=== PATIENT | male | born 1940 | race Caucasian/White ===

== ENCOUNTER 2023-12-13 13:45 | Outpatient (RCR) | payer OTHER, SELFPAY | END 2024-02-08 09:31 | disposition home or self-care (01) | PROVIDERS: PCP Family Medicine; Visit Provider Family Medicine | DX: S46.012A Strain of muscle(s) and tendon(s) of the rotator cuff of left shoulder, initial encounter (principal); S49.92XA Unspecified injury of left shoulder and upper arm, initial encounter; M25.512 Pain in left shoulder; M25.612 Stiffness of left shoulder, not elsewhere classified; M25.611 Stiffness of right shoulder, not elsewhere classified; Z51.89 Encounter for other specified aftercare | CPT/HCPCS: 97110; 97112; 97116; 97140; 97162 ==

== ENCOUNTER 2024-01-31 10:07 | Outpatient (CLI) | payer OTHER, SELFPAY | END 2024-01-31 10:08 | disposition home or self-care (01) | LOC: CT 10:10 | PROVIDERS: PCP Family Medicine; Visit Provider Orthopaedic Surgery Sports Medicine | DX: Z01.818 Encounter for other preprocedural examination (principal) | CPT/HCPCS: 73200 ==

== ENCOUNTER 2024-02-15 09:14 | Day surgery (SDC) | payer OTHER, SELFPAY ==
[2024-02-15] VITALS (25 sets, daily range): BP systolic 99–160; BP diastolic 53–81; PULSE 55–82; RESP 12–20; TEMP 35.7–36.3; O2SAT 89–100; BMI 25.2
--- NOTE | 2024-02-15 10:26 | W.PM.H&PU ---
History & Physical Update History & Physical Update H&P Reviewed and patient assessed: No changes noted
--- NOTE | 2024-02-15 10:28 | XR_ITS ---
Patient: MAREN ARRIAZA Facility:?[facility] Patient ID:?[id number] Site Patient ID:?[id number]. Site :?[id number] Study:?XRay-Shoulder Left 2 VIEW POSTOP-02/15/2024 4:48:03 PM Ordering Physician:ALEX Final Report: Indication: Postop Technique: Two views left shoulder Findings/Impression: Hardware from a left total shoulder arthroplasty is in satisfactory position. Bone alignment is normal. No sign of acute fracture. Postop changes are within normal limits. Dictated by Luis A Domingo MD @ 02/16/2024 8:26:39 AM Signed by:?Luis A Domingo MD @02/16/2024 8:26:39 AM (Electronic Signature)
[2024-02-15] MEDS: LACTATED RINGERS 1000 ML 1,000 ML 100 ML IV ×2 (10:30→12:54)
[2024-02-15] MEDS: SODIUM CHLORIDE 0.9 % (FLUSH) 10 ML SYRINGE IVF (10:31)
[2024-02-15] MEDS: OXYCODONE (CR) 10 MG TAB.ER.12H PO (10:43)
[2024-02-15] MEDS: MIDAZOLAM HCL 1 MG/ML inj IVP (11:14)
[2024-02-15] MEDS: fentaNYL 100 MCG/2 ML inj IVP (11:14)
--- NOTE | 2024-02-15 11:19 | SUR.PREOP ---
TIME?OUT:?1113 PT/RN/MDA?VERIFICATION?OF?SURGICAL?SITE,?PROCEDURE,?AND?CONSENT OBTAINED?PRIOR?TO?INVASIVE?PROCEDURE.
--- NOTE | 2024-02-15 11:41 | SUR.OPER ---
PATIENT QUESTIONS ANSWERED SATISFACTORILY PREOPERATIVELY. PATIENT BROUGHT TO OR #3 PER CART FOLLOWING THE BLOCK. Patient positioned supine on OR #3 bed for the intubation.? Perioperative team wrapped the right arm in a neutral position on the pt. abdomen with the drawsheet. Left arm elevated on an IV pole in a padded strap. Final approval of positioning by surgeon.
[2024-02-15] MEDS: TRANEXAMIC ACID 100 MG/ML INJ 1000 MG IV (12:38)
[2024-02-15] MEDS: CEFAZOLIN 2 GM in 0.9 % SODIUM CHLORIDE Mini-bag 100 ML IVPB (12:40)
--- NOTE | 2024-02-15 12:43 | W.PM.NB ---
Nerve Block Nerve Block Time Seen by Provider: 11:10 Date Seen: 02/15/24 Type of block requested by surgeon for post-operative analgesia: supraclavicular Side: left Time out performed: Yes Verification of patient name: Yes Verification of date of : Yes Site marking: site marked Name of person performing procedure: Bull Continuous monitoring Was continuous monitoring of O2 sat, B/P, groundwater monitoring technician, recorded every 15 minutes?: Yes Procedure Checklist: sterile prep, needles and gloves Ultrasound guided. Images saved: Yes Medications given in 5ml increments after negative aspiration: Ropivicaine %: 0.5 mL: 20 Needle gauge: 22 Decadron (mg): 10 Precedex (mcg): 25 Patient tolerated procedure well: Yes Block Charges Block Charge (with Pro Fee): Brachial Plexus Use of Ultrasound Machine for Block: Yes- US Guidance/pain block
--- NOTE | 2024-02-15 12:44 | W.ANESCHARGE ---
Anesthesia Charges Start Date/Time Anesthesia Start Date: 02/15/24 Anesthesia Start Time: 12:18 Stop Date/Time Anesthesia Stop Date: 02/15/24 Anesthesia Stop Time: 14:21 Summary Extremes of Age - Over 70 or under 1: MDA
--- NOTE | 2024-02-15 14:04 | PM.ORPRC ---
Procedure Note Date of procedure: 02/15/24 Procedure: PREOPERATIVE DIAGNOSIS: 1. Left shoulder irrepairable rotator cuff tear 2. Left long head of the biceps tendinopathy and tenosynovitis POSTOPERATIVE DIAGNOSIS: 1. Left shoulder irrepairable rotator cuff tear 2. Left long head of the biceps tendinopathy and tenosynovitis PROCEDURE: 1. Left reverse shoulder arthroplasty. 2. Left long head of biceps open tenodesis SURGEON: Rylan Kowalski MD. MEDICAL SCIENTIFIC LIAISON: Krishna RIVERA - Of note, a skilled administrative assistant receptionist was critical for this case to aid in patient positioning, tissue retraction, limb manipulation/positioning, retraction for glenoid exposure, which was challenging, awareness and protection of critical structures, and closure. ANESTHESIA: General plus supraclavicular block EBL: 100 ml IMPLANTS: DJ0 surgical Altivate humeral stem size 10 standard shell, short with P2 porous coating vitamin E neutral poly small socket insert RSP glenoid base plate P2 porous coating with 4 perimeter locking screws 32 neutral glenosphere with retaining screw COMPLICATIONS: None evident INDICATIONS: The patient is a pleasant 83-year-old male who sustained left shoulder rotator cuff tear that was found to be significantly torn, retracted, and atrophied. It was not felt to be repairable. Given his dysfunction, associated pain with daily life, and failure of nonoperative management, surgery was indicated. DESCRIPTION OF PROCEDURE: Following a thorough discussion of risks, benefits, and alternatives, consent was obtained and the left shoulder was marked. The patient was brought to the operating room and placed supine on the operating table. Induction of anesthesia was undertaken. 1 g IV Ancef and 1 g tranexamic acid was administered within 1 hr of incision preoperatively. Appropriate time-out was performed identifying proper patient, site, and procedure. The operative extremity was prepped and draped in the appropriate sterile fashion using ChloraPrep after the patient was positioned in the lazy beach chair position with head in neutral alignment and all bony prominences well padded. A longitudinal incision was made for deltopectoral approach. Deltoid was retracted laterally. Cephalic vein was identified and retracted laterally as well. Vein was spared/protected throughout the case. The clavipectoral fascia was identified and divided longitudinally staying lateral to the conjoined tendon / coracoid. The conjoined tendon was protected with a blunt Hohmann. The long head of the biceps tendon was identified and the bicipital sheath released. The upper 1/4 of the pectoralis major was also released from its insertion. The long head of the biceps was tenodesed to the pectoralis major tendon. The remaining proximal tendon tissue was excised. The rotator cuff was inspected and found to have good integrity with the subscapularis but fair integrity with a supraspinatus], and a decision for a reverse shoulder arthroplasty was confirmed. The long head of biceps, of note, was significant flattened, thickened, with abundant tenosynovitis. A subscapularis cuff of tissue was left via tenotomy for later repair with the remaining subscapularis released in a subperiosteal fashion with the Bovie. This was tagged for later repair. The 3 sisters were cauterized. The upper subscapularis was released from the capsule with a curved Larson scissors towards the glenoid. The inferior subscapularis was divided from the capsular tissue on its caudal surface with particular caution for the axillary nerve. This was palpated anterior to the subscapularis both prior to and near the finish of the case. Inferior humeral head osteophytes were excised with caution taken throughout the case with regards to the axillary nerve. The humerus was dislocated, and humeral head cut completed. Then a protector plate was applied. We turned our attention to the glenoid. The humerus was retracted posteriorly. The subscap was protected anteriorly and the labrum/long head biceps origin was excised circumferentially. The capsule was released along the anterior and inferior portions of the glenoid cautiously with a Chicas elevator being careful not to penetrate deep. The glenoid had appropriate exposure, and was prepared with the cannulated system with a target of approximately 5-10? of inferior tilt and neutral anteversion (patient had 7 ? of retroversion initially). [Utilizing the match Point 3D printed guide, the guide pin was placed. The 3D printed jig removed and after placing the guide pin, the tap was placed followed by the glenoid reaming. The real base plate was opened, and inserted, and excellent compression/purchase was achieved with the central screw. Peripheral screws were then drilled, measured, and placed. The glenosphere was then placed consistent with the preoperative plan utilizing the above noted glenosphere. After securing the glenosphere with the locking, torque limited screw, attention was turned back to the humerus. A canal finder was placed followed by various reamers by hand. The real humeral stem was then opened and inserted with excellent metaphyseal fit and stability. Trial poly was placed and the shoulder reduced. Excellent reduction and stability achieved with appropriate tension on the conjoined tendon. At this stage, trial implants were removed, and the real implants inserted and the shoulder reduced. A 3 minute Betadine soak was performed followed by a thorough irrigation with normal saline. Subscapularis was repaired with #1 PDS to the cuff of tissue on the lesser tuberosity. Excellent reapproximation of tissue achieved. Hemostasis was found to be appropriate. The deltopectoral interval was reapproximated with 0 Vicryl, subcutaneous and subcuticular closure was then performed with number 2-0 Vicryl and 4-0 Monocryl, respectively. A skilled administrative assistant receptionist was critical for this case to aid in patient positioning, tissue retraction, limb manipulation/positioning, retraction for glenoid exposure, which was challenging, awareness and protection of critical structures, and closure. PLAN: 1. Sling at all times for the operative upper extremity. 2. AROM of elbow, forearm, wrist, and digits as tolerated. 3. PT/OT consults for education and assistance. 4. Social consult for discharge planning. 5. 23 hr perioperative antibiotics. 6. Early ambulation, and SCDs for DVT prophylaxis. 7. Admit to the hospital for the above 8. Analgesics p.r.n.
--- NOTE | 2024-02-15 14:22 | PM.IMPN1 ---
Progress Note: A&P Assessment and plan (1) Status post reverse total shoulder replacement: Problem details: 02/15/24. Dr. Kowalski [facility] medicine team is happy to follow patient through to discharge. I will add telemetry and glucose checks to his overnight cares. 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 hx of AMI. 2 stents, RCA. [place]. normal stress echo in April 2007 does not follow with cardiology Status: Acute (6) Essential hypertension, benign: Problem details: lisinopril, metoprolol XL - lisinopril on hold. Metoprolol will be continued as long as his map is greater than 65. Status: Acute (7) Sensorineural hearing loss, bilateral: Status: Acute Subjective Date Seen: 02/15/24 Interval history: HOSPITALIST CONSULT PROCEDURE: 1. Left reverse shoulder arthroplasty. 2. Left long head of biceps open tenodesis SURGEON: Rylan Kowalski MD. ANESTHESIA: General plus supraclavicular block EBL: 100 ml COMPLICATIONS: None evident The hospital medicine team was asked by the orthopedic surgery team to manage the patient's diabetes, known coronary heart disease, hypertension. There have been no perioperative complications. Updated and reviewed the active medical problems, past medical history, past surgical history, social history, allergies and medications in our electronic EMR. PHYSICAL EXAM: CODE STATUS: FULL CODE CONSTITUTIONAL: Conversive, good historian. A/O. Knows setting and context. VITAL SIGNS: see record. HEENT: Normocephalic, atraumatic. PERRL, EOMI, conjunctivae pink, no scleral icterus. Ears and nose externally normal. Pharynx normal. NECK: No JVD. No carotid bruit, no thyromegaly, no adenopathy. CHEST: Clear to auscultation bilaterally HEART: S1 and S2 normal. ABDOMEN: Flat, soft, nontender. Normal bowel sounds. Moderately obese. EXTREMITIES: No edema. MUSCULOSKELETAL: Left shoulder: surgical dressing in place. NEURO: Cranial nerves intact. Mentation normal. Normal affect. SKIN: No rashes, petechiae, concerning changes PSYCHIATRIC: Mentation normal. INVESTIGATIONS: EMR Reviewed; Pre-OP Reviewed DISPOSITION: DVT: N/A GI: PO intake Exam Const: Vital Signs, click to edit/add: Vital Signs - 24 hr 02/15/24 10:14 02/15/24 11:15 02/15/24 11:30 Temperature 97.0 F L Pulse Rate 60 57 L 55 L Respiratory Rate 16 16 16 Blood Pressure 160/81 H 114/59 L 100/55 L Pulse Oximetry 99 98 99 Oxygen Delivery Me thod Room Air Nasal Cannula Nasal Cannula Oxygen Flow Rate 2 2 02/15/24 11:45 Temperature Pulse Rate 56 L Respiratory Rate 16 Blood Pressure 99/57 L Pulse Oximetry 100 Oxygen Delivery Me thod Nasal Cannula Oxygen Flow Rate 2
--- NOTE | 2024-02-15 14:24 | W.ANESCHARGE ---
Anesthesia Charges Start Date/Time Anesthesia Start Date: 02/15/24 Anesthesia Start Time: 12:18 Stop Date/Time Anesthesia Stop Date: 02/15/24 Anesthesia Stop Time: 14:21 Summary Extremes of Age - Over 70 or under 1: AUTOMOTIVE QUALITY MANAGER
--- NOTE | 2024-02-15 18:51 | PC.NURSE ---
Discharge: Patient pleasant and cooperative, A&O. VSS, SpO2 maintained over 88% on 0.5L O2. Lung sounds clear to auscultation. Blood glucose 196, informed of insulin order, refused for now, patient takes metformin at baseline. Denies pain. Able to wiggle fingers, has good capillary refill, tolerating regular diet. Dressing clean dry and intact. Left arm in sling.
[2024-02-15] MEDS: LACTATED RINGERS 1000 ML 1,000 ML 75 ML IV (20:36)
[2024-02-15] MEDS: CEFAZOLIN 1 GM in 0.9 % SODIUM CHLORIDE Mini-bag 100 ML IVPB (20:38)
[2024-02-15] MEDS: METFORMIN ER 500 MG 1000 MG PO (20:42)
[2024-02-15] MEDS: SIMVASTATIN 40 MG TABLET PO (20:42)
[2024-02-15] MEDS: SENNOSIDES 1 TAB TABLET 2 TAB PO (20:42)
[2024-02-15] MEDS: ACETAMINOPHEN 500 MG TABLET 1000 MG PO (20:42)
[2024-02-15] MEDS: INSULIN ASPART 100 UNIT/ML SUBCUT (20:45)
[2024-02-16 03:00] VITALS: BP 114/63; PULSE 75; RESP 16; TEMP 35.8; O2SAT 77
[2024-02-16] MEDS: CEFAZOLIN 1 GM in 0.9 % SODIUM CHLORIDE Mini-bag 100 ML IVPB (03:52)
[2024-02-16] MEDS: ACETAMINOPHEN 500 MG TABLET 1000 MG PO ×2 (03:56→10:00)
[2024-02-16 06:41] LABS: Hematocrit 34.4 % (37.0-53.0); Hemoglobin* 11.2 gm/dL (13.5-17.5); Mean Corpuscular HGB Conc 33 gm/dL (32-36); Mean Corpuscular Hemoglobin 32 pg (26-34); Mean Corpuscular Volume 97 fL (80-100); Platelet Count* 199 K/uL (140-440); Red Blood Count 3.55 m/uL (4.30-5.90); White Blood Count* 16.15 K/uL (4.50-11.00)
--- NOTE | 2024-02-16 06:42 | PC.NURSE ---
Patient pleasant, alert and oriented. Ambulated to bathroom with assist of one. Saline locked at 2114. Patient declined to take scheduled SS insulin at suppertime. Blood sugar 289 at HS. Patient agreed to take scheduled HS sliding scale insulin at that time. Dressing to left shoulder clean, dry and intact.?Active-ice applied. Given scheduled Tylenol. Denied pain during the night.?
[2024-02-16 06:45] LABS: Slide Review Reflex No
[2024-02-16 07:00] VITALS: BP 123/64; PULSE 78; PULSE 93; RESP 18; TEMP 36.4; O2SAT 93
[2024-02-16 07:06] LABS: Potassium* 4.7 mmol/L (3.6-5.1); Sodium* 136 mmol/L (135-149)
[2024-02-16 07:09] LABS: Creatinine* 0.8 mg/dL (0.5-1.5); Est. Creatinine Clearance* 50.51; Estimated Glomerular Filt Rate 88 ml/min
[2024-02-16 07:10] LABS: Blood Urea Nitrogen* 32 mg/dL (7-30)
[2024-02-16 08:17] VITALS: PULSE 82
--- NOTE | 2024-02-16 09:13 | PM.ORPN ---
Subjective Subjective Date Seen: 02/16/24 Principal diagnosis: Status postop day 1 left reverse TSA and long head biceps tenodesis Interval history: Patient reports doing well. No acute events over night. Pain managed with scheduled and PRN medications, ice. DVT prophylaxis: SCDs and walking. Denies fevers, chills, aches, N/V, CP, SOB/AUGUSTINE, or lightheadedness. Ortho Exam Narrative Exam Narrative: -Patient appears comfortable in recliner; no apparent acute distress -Alert and oriented times 3 -Operative shoulder swollen; soft, supple tissues; no obvious erythema. No ecchymosis. Warmth appropriate -Surgical dressing clean, dry, intact; no obvious drainage, no erythematous streaking peripheral to the bandage -Bilateral calves soft and supple; no significant swelling, edema, tenderness, erythema, discoloration, warmth, or palpable cords -2+ radial pulse, intact dermatomes and myotomes distally (5/5 strength) Const Vital Signs, click to edit/add: Vital Signs - 24 hr 02/15/24 10:14 02/15/24 11:15 02/15/24 11:30 Temperature 97.0 F L Pulse Rate 60 57 L 55 L Pulse Rate [Left Pulse Oximeter] Respiratory Rate 16 16 16 Blood Pressure 160/81 H 114/59 L 100/55 L Blood Pressure [Right Arm] Pulse Oximetry 99 98 99 Oxygen Delivery Method Room Air Nasal Cannula Nasal Cannula Oxygen Flow Rate 2 2 02/15/24 11:45 02/15/24 14:16 02/15/24 14:20 Temperature 96.8 F L Pulse Rate 56 L 70 71 Pulse Rate [Left Pulse Oximeter] Respiratory Rate 16 17 16 Blood Pressure 99/57 L 134/62 128/53 L Blood Pressure [Right Arm] Pulse Oximetry 100 95 92 Oxygen Delivery Method Nasal Cannula Room Air Oxygen Flow Rate 2 02/15/24 14:25 02/15/24 14:30 02/15/24 14:35 Temperature Pulse Rate 68 70 71 Pulse Rate [Left Pulse Oximeter] Respiratory Rate 14 12 12 Blood Pressure 126/70 126/66 130/77 Blood Pressure [Right Arm] Pulse Oximetry 90 91 93 Oxygen Delivery Method Oxygen Flow Rate 02/15/24 14:40 02/15/24 14:45 02/15/24 14:55 Temperature 96.8 F L 96.3 F L Pulse Rate 67 66 67 Pulse Rate [Left Pulse Oximeter] Respiratory Rate 14 12 12 Blood Pressure 123/67 128/70 106/65 Blood Pressure [Right Arm] Pulse Oximetry 91 92 90 Oxygen Delivery Method Room Air Oxygen Flow Rate 02/15/24 15:15 02/15/24 15:30 02/15/24 15:45 Temperature 96.4 F L 96.4 F L Pulse Rate 68 64 64 Pulse Rate [Left Pulse Oximeter] Respiratory Rate 14 14 Blood Pressure 118/65 117/70 119/67 Blood Pressure [Right Arm] Pulse Oximetry 90 89 Oxygen Delivery Method Room Air Room Air Room Air Oxygen Flow Rate 02/15/24 16:00 02/15/24 16:30 02/15/24 16:40 Temperature 96.4 F L 96.3 F L Pulse Rate 66 68 67 Pulse Rate [Left Pulse Oximeter] Respiratory Rate 16 12 Blood Pressure 126/67 135/69 106/65 Blood Pressure [Right Arm] Pulse Oximetry 95 90 Oxygen Delivery Method Nasal Cannula Room Air Oxygen Flow Rate 0.5 02/15/24 16:42 02/15/24 17:00 02/15/24 18:00 Temperature 97.0 F L 97.3 F L Pulse Rate 64 67 78 Pulse Rate [Left Pulse Oximeter] Respiratory Rate 16 16 Blood Pressure 132/62 115/67 Blood Pressure [Right Arm] Pulse Oximetry 94 94 Oxygen Delivery Method Nasal Cannula Nasal Cannula Oxygen Flow Rate 0.5 0.5 02/15/24 19:30 02/15/24 20:15 02/15/24 21:15 Temperature 97.3 F L 97.1 F L 97.3 F L Pulse Rate 74 77 82 Pulse Rate [Left Pulse Oximeter] Respiratory Rate 16 20 19 Blood Pressure 113/56 L 125/64 115/69 Blood Pressure [Right Arm] Pulse Oximetry 93 90 93 Oxygen Delivery Method Room Air Room Air Room Air Oxygen Flow Rate 02/15/24 23:00 02/15/24 23:00 02/16/24 03:00 Temperature 97.3 F L 96.4 F L Pulse Rate 73 Pulse Rate [Left Pulse Oximeter] 76 75 Respiratory Rate 18 16 Blood Pressure Blood Pressure [Right Arm] 114/64 114/63 Pulse Oximetry 94 77 L Oxygen Delivery Method Room Air Room Air Oxygen Flow Rate 02/16/24 07:00 Temperature 97.6 F Pulse Rate Pulse Rate [Left Pulse Oximeter] 93 Respiratory Rate 18 Blood Pressure Blood Pressure [Right Arm] 123/64 Pulse Oximetry 93 Oxygen Delivery Method Room Air Oxygen Flow Rate Assessment and Plan Assessment and plan (1) Status post reverse total shoulder replacement: Problem details: 02/15/24. Dr. Kowalski [facility] [address] medicine team is happy to follow patient through to discharge. I will add telemetry and glucose checks to his overnight cares. 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 hx of AMI. 2 stents, RCA. [place]. normal stress echo in April 2007 does not follow with cardiology Status: Acute (6) Essential hypertension, benign: Problem details: lisinopril, metoprolol XL - lisinopril on hold. Metoprolol will be continued as long as his map is greater than 65. Status: Acute (7) Sensorineural hearing loss, bilateral: Status: Acute Plan - Complete 23 hour perioperative antibiotics. - PT/OT consult for education and assistance. - Social work consult for discharge planning - Prescribed analgesics as needed - DVT prophylaxis: SCDs and walking - Anticipation is for discharge to home with spouse today, 02/16/2024 if the patient remains medically stable, pain is controlled, and they are safe with mobilization.
[2024-02-16] MEDS: EMPAGLIFLOZIN 10 MG TABLET PO (10:00)
[2024-02-16] MEDS: SENNOSIDES 1 TAB TABLET 2 TAB PO (10:00)
[2024-02-16] MEDS: METOPROLOL SUCCINATE (XL) 100 MG TAB PO (10:01)
[2024-02-16] MEDS: METFORMIN ER 500 MG 1000 MG PO (10:17)
--- NOTE | 2024-02-16 13:54 | PC.NURSE ---
Discharge: Patient pleasant and cooperative, A&O. SpO2 maintained over 90% on RA. Left lung sounds were diminished. Crackles auscultated on right lung base, MD notified. Dressing on left shoulder clean, dry and intact. Patient reported no pain. Left arm in sling with ice pack. Discharge instructions given to patient and spouse, all questions answered.
== END 2024-02-16 11:25 | disposition home or self-care (01) ==
LOC: OR 09:15 → MEDSURG 09:18
PROVIDERS: PCP Family Medicine; Visit Provider Orthopaedic Surgery Sports Medicine
PROC: 0RRJ0JZ Replacement of Right Shoulder Joint with Synthetic Substitute, Open Approach (ICD-10-PCS; CPT 23472; principal; 2024-02-15 11:00)
DX: M75.122 Complete rotator cuff tear or rupture of left shoulder, not specified as traumatic (principal); M75.22 Bicipital tendinitis, left shoulder; G89.18 Other acute postprocedural pain; G47.33 Obstructive sleep apnea (adult) (pediatric); Z99.89 Dependence on other enabling machines and devices; I12.9 Hypertensive chronic kidney disease with stage 1 through stage 4 chronic kidney disease, or unspecified chronic kidney disease; E11.22 Type 2 diabetes mellitus with diabetic chronic kidney disease; N18.1 Chronic kidney disease, stage 1; Z79.84 Long term (current) use of oral hypoglycemic drugs; I25.10 Atherosclerotic heart disease of native coronary artery without angina pectoris; Z87.891 Personal history of nicotine dependence; H90.3 Sensorineural hearing loss, bilateral
CPT/HCPCS: 23472; 23430; 01638; 36415; 64415; 73030; 76942; 82565; 82962; 84132; 84295; 84520; 85027; 97116; 97161; 97165; 99100; A9270; C1713; C1776; J0330; J0690; J1100; J2250; J2371; J2405; J2704; J2795; J3010; J3490; J7120; L3670

== ENCOUNTER 2024-07-11 10:30 | Outpatient (RCR) | payer OTHER, SELFPAY ==
--- NOTE | 2024-02-09 16:44 | OT.OPOE ---
OT Outpatient Ortho Eval OT Outpatient Ortho Eval* Start: 02/09/24 14:53 Freq: Status: Active Protocol: Document 02/09/24 16:27 SMW (Rec: 02/09/24 16:43 SMW [id number]) E-signed By Kiley Khan OT OT OP Ortho Eval Details Complexity Complexity Low Insurance Information Insurance Information [facility] Outpatient History/Precautions Current Condition/Medical Diagnosis Referring Provider Dr. Kowalski Treatment Diagnosis Left TSA Date of Onset surgery scheduled for 02/15/24 Precautions Lifting Restrictions,Range of Motion Medical Conditions DM,Heart Condition Medical/Functional History Medical History Reviewed Yes Prior Level of Function/Mobility Patient lives with spouse and is independent in ADLs, IADLs and occasional use of a 4WW. Reports significant falls recently. Ortho Subjective Subjective Subjective A fall in August caused me to replace my left shoulder. Pain Assessment Pain Present Pain Present Pain Reported Assessment Assessment Assessment The patient is a 83 year old male referred to outpatient OT for a pre-op for a LTSA which will occur on 02/15/24. The patient lives with spouse in own home. He is independent in ADLs and mobility. His daughter recently purchased a 4WW due to several falls. He reports only using it ~ 1x per week. A fall in August is what caused him to need a total shoulder replacement. The patient was educated on sling management, postioning, post op exercises and icing. This information will need to be reinforced prior to discharge from the hospital. Occupational Therapy Treatment Plan - OP Treatment Plan Treatment Plan Evaluation Recertification Information Recertification Information Initial Certification Date 02/09/24 Recertification Start Date 02/09/24 Provider Signature Shows Agreement With POC & Medical Necessity Physician Comment/Change Comment or Changes Physician NPI Number #
--- NOTE | 2024-02-29 17:24 | PT.OPEX ---
PT [place] Outpatient Eval PT [facility] Outpatient Eval Start: 02/29/24 10:10 Freq: Status: Active Protocol: Document 02/29/24 10:10 LINDSEY (Rec: 02/29/24 17:24 LINDSEY [id number]) E-signed By Joann Mitchell PT Physical Therapy Outpatient Evaluation Insurance Information Recert Due Date 02/29/24 Insurance Name Medicare B Medical Diagnosis LEFT OA LEFT RTC TEAR S/P rTSA 02/15/24 Treating Diagnosis SHOULDER PAIN SHOULDER WEAKNESS Referring MD ELIZABETH FISH Subjective Subjective PATIENT ARRIVES W/O SLING TODAY STATING, OH, I DIDN'T KNOW I NEEDED TO WEAR IT EXCEPT TO SLEEP. LOOK, I CAN MOVE IT PRETTY GOOD BUT NOT GOOD WHEN I REACH BEHIND MY BACK. HE HAS A LONG H/O SHOULDER DYSFUNCTION WITH FORMAL PHYSICAL THERAPY RECENTLY W/O IMPROVEMENT. HE REPORTS USING ICE AND PO MEDS FOR PAIN MGMT BUT DENIES MUCH PAIN AND RARELY USES THEM AT THIS POINT . HE REPORTS DIFFICULTY LYING FLAT W/O ROLLING OVER TO HIS RIGHT SIDE WHERE HE USUALLY SLEEPS. SEE BELOW FOR PATIENT EDUCATION. Pain Comments 12/03 Date of Last Physician Visit 02/23/24 Date of Next Physician Visit 03/30/24 Date of Surgery (If applicable) 02/15/24 Current Work Status Retired Occupation RETIRED REALTOR Preferred Name LISETH Precautions Treatment Precautions/Contraindications 02/29/24: SLING FOR 6WEEKS, AAROM BEGIN AAROM UNTIL 4 WKS, NO PROM INTO IR, NO REACHING BEHIND BACK, ESPECIALLY WITH IR, NO LIFTING, NO SUPPORTING OF BODY WEIGHT WITH HANDS, PLACE SMALL PILLOW/TOWEL ROLL UNDER ELBOW WHILE SUPINE AND AVOID HYPEREXTENSION. Therapy Limitations/Systems Review Hearing Objective Other/Pertinent Objective PROM SHOULDER FLEX 95, SHOULDER AD 78, SHOULDER ER @ 45 DEGREES ABD 12, IR @45ABD 22 INCISION IS PRISTINE W/O S/S OF INFECTION, MIN EDEMA, MIN ECCHYMOSIS Assessment Assessment/Impression PATIENTIS AN [address] FISH TO EVAL & TX S/P rTSA W/LONG HEAD BICEPS TENODESIS 02/15/24. PMHX INCLUDES BUT NOT LIMITED TO HTN, DM, HLD CKD STAGE 1, HYPERTENSIVE CKD, CAD W/STENT AND H/O STEMI, ANABELLA, B [place], H/O R TSA 2018. PATIENT DEMONSTRATES GOOD PROM (SEE ABOVE) WITH GOOD PAIN MGMT BUT REQUIRES QUITE A BIT OF EDUCATION REGARDING PRECAUTIONS AND RESTRICTIONS BEGINNING WITH WEARING SLING, NO AROM, REACHING BEHIND BACK, MOWING LAWN. HE HAS BEEN PERFORMING THESE ACTIVITIES W/ O PAIN AND DID NOT CONSIDER THEM TO RESTRICTED. HE ALSO NEEDS A GREAT DEAL OF REDIRECTION WITH PENDULUMS HE STANDS WITH A SLIGHT BED FWD AND SWINGS HIS ARM FROM FLEX TO EXT ACTIVELY. AFTER SEVERAL DEMONSTRATIONS AND BOTH VERBAL AND TACTILE CUEING , HE LEFT TODAY KNOWING AND DEMONSTRATING THE CORRECT FORM . HE IS APPROPRIATE FOR SKILLED PHYSICAL THERAPY TO ADDRESS SYMPTOM MGMT, ROM AND RTC/SCAPULAR STRENGTHENING AND STABILIZATION APPROPRIATE. PATIENT PROVIDED A HANDOUT WITH CURRENT HEP WITH EDUCATION REGARDING HIS TSA, ADL'S AND RESTRICTIONS/ PRECAUTIONS. PATIENT VERBALIZED UNDERSTANDING TO ALL SKILLED INSTRUCTION AND AGREEABLE TO POC AND FREQ. Primary Functional Limitations USE OF LEFT UE: REACHING, LIFTING, ADL'S, IADL'S Plan of Care Rehabilitation Potential Good Physical Therapy Goals STG IN 4-6 WEEKS: 1. PATIENT WILL DEMONSTRATE GOOD MGMT OF HIS PAIN AND EDEMA WITH REPORTED PAIN </3/ 10 DURING HIS HOME PROGRAM AND WITH THE PROGRESSION OF HIS PHYSICAL THERAPY. 2. PATIENT WILL RETURN TO INDEPENDENCE WITH ADL'S, RETURN TO DRIVING, AND MAINTAIN HIS PRECAUTIONS/ RESTRICTIONS 3. PATIENT WILL DEMONSTRATE PROM TO WFL TO PREPARE FOR RETURN TO FUNCTIONAL USE OF RIGHT UE; LTG WITHIN 10-12 WEEKS: 1. PATIENT WILL DEMONSTRATE AROM OF RIGHT SHOULDER TO WFL TO RETURN TO FULL FUNCTIONAL FOR ADL'S, IADL'S AND PEER CENTERED ACTIVITIES. 2. PATIENT WILL DEMONSTRATE FUNCTIONAL STRENGTH TO RETURN TO REACHING OVERHEAD, ANTERIORLY AND OUT TO SIDE NEEDED DURING PATIENT CENTERED ACTIVITIES. 3. PATIENT WILL DEMONSTRATE INDEPENDENCE WITH HIS HEP TO PROGRESS TWD THE ABVE MENTIONED GOALS, CONTINUED MGMT OF SYMPTOMS, AND ONGOING IMPROVEMENT WITH ROM, STRENGTH AND FUNCTION FOR A FULL RETURN TO ALL ACTIVITIES Coordination/Communication With Referral Source Treatment Plan/Direct Interventions Ice/Cold/Vasopneumatic,Joint Mobilization,Manual Therapy, Neuromuscular Re-ed,Self-Care/ Home Management,Therapeutic Activities,Therapeutic Exercises Frequency/Duration 1-2X/10-12 WKS Patient Will Be Discharged From Therapy Completion of LTG(s), Independently Progressing Evaluation Billing Untimed Code Treatment Minutes 15 PT Eval No Charge No Complexity Low Certification Information Initial Certification Date 02/29/24 Ending Certification Date 05/28/24 Provider Signature Shows Agreement With POC & Medical Necessity Physician Signature & Date Requested Please Sign/Date Here Physician Comment/Change : Physician NPI Number #
--- NOTE | 2024-06-19 16:06 | PT.OPDNX ---
PT [facility] Outpatient Daily Note PT [facility] Outpatient Daily Note Start: 02/29/24 10:10 Freq: Status: Active Protocol: Document 06/19/24 12:59 LINDSEY (Rec: 06/19/24 16:06 LINDSEY [id number]) E-signed By Joann Mitchell, PT PT OP Daily Progress Note Visit Information Note Type Daily Note Visit Number [id number] Insurance Information Recert Due Date 02/29/24 Insurance Name Medicare B Medical Diagnosis LEFT OA LEFT RTC TEAR S/P rTSA 02/15/24 Treating Diagnosis SHOULDER PAIN SHOULDER WEAKNESS Referring MD ELIZABETH FISH Subjective Preferred Name LISETH Subjective PATIENT RETURNS HAVING BEEN ON VACATION FOR 2 WEEKS. HE STATES, I STRETCHED IT THROUGHOUT THE DAY LIKE YOU SAID. HE FURTHER REPORTS THAT HE WAS NOT LIMITED BY HIS SHOULDER THROUGHOUT HIS TRAVELS. Pain Comments 0-2/10 LEFT SHOULDER Date of Next Physician Visit 07/17/24 Date of Surgery (If applicable) 02/15/24 Precautions Treatment Precautions/Contraindications 04/03/24: 20# WEIGHT RESTRICTION Weight Bearing Status Non-Weight Bearing Objective Other/Pertinent Objective CURRENT: 06/19/24: STDG AROM 92 /88/42/L5 05/24/24 STDG AROM 110, 96,46 L2 05/10/24: STDG AROM 110/75/46/ L5; SUPINE 150/88 04/27/24 STDG AROM 108/70/44/L5 04/19/24 STDG AROM FLEX 78/ABD 62/ER@0 25; SUPINE PROM FLEX 166/ 142/ ER@45 54 03/30/24: STDG AROM FLEX 68, ABD 68, ER @0 16; PROM FLEX 136, ABD 110, ER@45 32 EVAL PROM SHOULDER FLEX 95, SHOULDER AD 78, SHOULDER ER @ 45 DEGREES ABD 12, IR @45ABD Treatment Minutes Timed Code Treatment Minutes 45 Total Treatment Time 45 Billing Units Manual Therapy Units 1 Therapeutic Exercise Units 2 Plan of Care Physical Therapy Goals STG IN 4-6 WEEKS: 1. PATIENT WILL DEMONSTRATE GOOD MGMT OF HIS PAIN AND EDEMA WITH REPORTED PAIN </3/ 10 DURING HIS HOME PROGRAM AND WITH THE PROGRESSION OF HIS PHYSICAL THERAPY. 2. PATIENT WILL RETURN TO INDEPENDENCE WITH ADL'S, RETURN TO DRIVING, AND MAINTAIN HIS PRECAUTIONS/ RESTRICTIONS 3. PATIENT WILL DEMONSTRATE PROM TO WFL TO PREPARE FOR RETURN TO FUNCTIONAL USE OF RIGHT UE; LTG WITHIN 10-12 WEEKS: 1. PATIENT WILL DEMONSTRATE AROM OF RIGHT SHOULDER TO WFL TO RETURN TO FULL FUNCTIONAL FOR ADL'S, IADL'S AND PEER CENTERED ACTIVITIES. 2. PATIENT WILL DEMONSTRATE FUNCTIONAL STRENGTH TO RETURN TO REACHING OVERHEAD, ANTERIORLY AND OUT TO SIDE NEEDED DURING PATIENT CENTERED ACTIVITIES. 3. PATIENT WILL DEMONSTRATE INDEPENDENCE WITH HIS HEP TO PROGRESS TWD THE ABVE MENTIONED GOALS, CONTINUED MGMT OF SYMPTOMS, AND ONGOING IMPROVEMENT WITH ROM, STRENGTH AND FUNCTION FOR A FULL RETURN TO ALL ACTIVITIES Daily Plan of Care Continue per POC Recertification Information Initial Certification Date 02/29/24 Recertification Start Date 06/19/24 Recertification Due Date 09/16/24 Reasons to Continue Skilled Therapy PATIENT DEMONSTRATES SLOW BUT STEADY PROGRESS WITH STRENGTH, ROM, AND FUNCTIONAL MOBILITY. HE INITIALLY STRUGGLE WITH CONSISTENCY WITH HIS HEP AND DAVID REGIME BUT HAS SINCE BEEN COMPLIANT. DESPITE HIS EFFORTS, HE STRUGGLES WITH ROM >90 W/O COMPENSATION. HE RECENTLY WAS OUT OF THE CLINIC FOR >2WEEKS D/T VACATION AND EXPOSURE TO COVID WHICH AFFECTED HIS MAINTENANCE OF HIS ROM LOOSING ~15-20% WITH FLEX AND ABD. WE DISCUSSED, AT LENGTH THE NEED TO OPTIMIZE THE SUPINE EXERCISES. HE WOULD BENEFIT FROM CONTINUED SKILLED PHYSICAL THERAPY TO IMPROVE HIS FUNCTIONAL ROM, STRENGTH, AND GENERALIZED MOBILITY. Rehabilitation Potential GOOD Continued Plan of Care and Interventions PROM, JOINT MOBILIZATION, STRENGTHENING, STRETCHING, AND STABILIZATION TRAINING. Provider Signature Shows Agreement With POC & Medical Necessity Discharge Note Date of First Visit for Therapy 02/29/24 Initial Primary Functional Limitations USE OF LEFT UE, ADL'S, IADL'S Initial Pain Level 2/10 Thank You For This Referral .
== END 2024-09-03 13:19 | disposition home or self-care (01) ==
PROVIDERS: PCP Family Medicine; Visit Provider Orthopaedic Surgery Sports Medicine
DX: M19.012 Primary osteoarthritis, left shoulder (principal); Z96.612 Presence of left artificial shoulder joint; Z51.89 Encounter for other specified aftercare
CPT/HCPCS: 97110; 97140; 97161; 97165; 97535